=== PATIENT | male | born 1980 | race Two or more races ===

== ENCOUNTER 2022-05-12 17:59 | Emergency (ER) | payer OTHER ==
[~2022-05-12] VITALS: Ht 180.3 cm; Wt 91.6 kg
[2022-05-12] MEDS ORDERED: VASOTEC20 MG PO (18:26)
== END 2022-05-12 21:06 | disposition home or self-care (01) ==
LOC: ER 17:59
DX: S52.121A Displaced fracture of head of right radius, initial encounter for closed fracture (principal); S69.81XA Other specified injuries of right wrist, hand and finger(s), initial encounter; W05.1XXA Fall from non-moving nonmotorized scooter, initial encounter; Y93.89 Activity, other specified; Y92.89 Other specified places as the place of occurrence of the external cause; M25.531 Pain in right wrist